=== PATIENT | female | born 1975 | race Hispanic/Latino ===

== ENCOUNTER → 2017-11-29 | Outpatient (CLI) | payer OTHER ==
--- NOTE | 2017-11-29 13:37 | Diagnostic Imaging Report ---
PROCEDURE:KNEE RIGHT THREE VIEWS TECHNIQUE:AP, lateral and oblique views right knee INDICATION:Pain in knee when sitting. COMPARISON:None. FINDINGS: The right knee is intact and in anatomic alignment. Joint spaces are normal. No effusion. Normal soft tissues. CONCLUSION: Normal study. Dictated by: Deon Seay M.D. on 11/29/2017 at 13:37 Electronically approved by: Deon Seay M.D. on 11/29/2017 at 13:37
--- NOTE | 2017-11-29 14:05 | Diagnostic Imaging Report ---
PROCEDURE:EXTREMITY ULTRASOUND COMPARISON:None. INDICATIONS:BAKERS CYST RT KNEE TECHNIQUE:Sonographic images seen transverse and longitudinal planes of the posterior aspect of both knees was performed utilizing grayscale and color Doppler modalities. FINDINGS: Examination shows normal skin, subcutaneous tissues, muscle and bony structures, without free fluid or well-defined fluid collections. CONCLUSION: No well-defined masses, fluid collections or free fluid are identified. Cezar Carcamo M.D. Dictated by: Cezar Carcamo M.D. on 11/29/2017 at 14:05 Electronically approved by: Cezar Carcamo M.D. on 11/29/2017 at 14:05
== END ==
LOC: US 13:03
PROVIDERS: ATTEND Family Medicine
DX: M25.561 Pain in right knee (principal); M71.21 Synovial cyst of popliteal space [Baker], right knee
CPT/HCPCS: 76882